=== PATIENT | female | born 1970 ===

== ENCOUNTER 2024-12-14 05:20 | Day surgery (SDC) | payer OTHER ==
[2024-12-08 12:57] VITALS: BP 160/110
[2024-12-08 12:58] VITALS: BP 150/100
[~2024-12-14] VITALS: Ht 160 cm; Wt 86.2 kg
[~2024-12-14 05:20] MED LIST: COZAAR25 MG PO
[2024-12-14] MEDS ORDERED: POVIDONE-IODINE 118 ML BOTT TOP ONE (07:45)
[2024-12-14] MEDS ORDERED: METRONIDAZOLE/SODIUM CHLORIDE 500 MG/100 ML PIGGYBACK IV ONE (07:45)
[2024-12-14] MEDS ORDERED: DIBUCAINE 30 GM TUBE RECTAL ONE (07:45)
[2024-12-14] MEDS ORDERED: LIDOCAINE HCL 1%/EPINEPHRINE 50ML VIAL IJ ONE (07:45)
[2024-12-14] MEDS ORDERED: HEMOSTATIC MATRIX 1 KIT KIT TOP ONE (07:45)
[2024-12-14] MEDS ORDERED: BUPIVACAINE HCL 30 ML VIAL IJ ONE (07:45)
[2024-12-14] MEDS ORDERED: CEFTRIAXONE SODIUM 2,000 MG VIAL IV ONE (07:45)
[2024-12-14] MEDS ORDERED: TAMSULOSIN HCL 0.4 MG CAP PO ONE (08:15)
[2024-12-14] MEDS ORDERED: OXYCODONE HCL5 MG PO (10:10)
== END 2024-12-14 13:10 | disposition home or self-care (01) ==
LOC: CIR.AMB 05:20
PROVIDERS: ATTEND Surgery
DX: D12.8 Benign neoplasm of rectum (principal); K62.89 Other specified diseases of anus and rectum; A63.0 Anogenital (venereal) warts